=== PATIENT | male | born 2000 | race Two or more races ===

== ENCOUNTER 2021-02-04 17:35 | Emergency (ER) | payer MEDICAID, OTHER, SELFPAY ==
[~2021-02-04] VITALS: Ht 170.2 cm; Wt 67.2 kg
--- NOTE | 2021-02-04 17:49 | NUR ---
TRIAGE: PATIENT ARRIVES WITH N/V/DIARRHEA & ALL OVER ABDOMINAL PAIN 10 OF 10 THAT BEGAN TODAY 0900 WHILE AT WORK; NO TRAUMA.
[2021-02-04] MEDS ORDERED: ONDANSETRON 2MG/ML, 2ML ONE (18:12)
[2021-02-04] MEDS ORDERED: LORazepam 2 MG/ML, 1ML ONE (18:13)
[2021-02-04] MEDS ORDERED: SODIUM CHLORIDE 0.9% 1,000ML IVBOLUS ONE (18:30)
[2021-02-04] MEDS ORDERED: LORazepam 2 MG/ML, 1ML IVPush ONE (18:30)
[2021-02-04] MEDS ORDERED: PLEASE ENTER ALLERGIES MC SCH (18:30)
[2021-02-04] MEDS ORDERED: ONDANSETRON 2MG/ML, 2ML IVPush ONE (18:30)
--- NOTE | 2021-02-04 18:31 | NUR ---
PT MEDICATED PER MAR. IV STARTED. FLUIDS INFUSING
[2021-02-04 19:04] LABS: BASOPHILS % (AUTO) 0 % (0-1); EOSINOPHILS % (AUTO) 0 % (1-7); LYMPHOCYTES % (AUTO) 5 % (22-44); MEAN CORPUSCULAR HEMOGLOBIN 29.1 pg (27.5-34.5); MEAN CORPUSCULAR HGB CONC 33.5 g/dL (33.2-36.2); MEAN PLATELET VOLUME 9.6 fL (7.4-10.4); MONOCYTES % (AUTO) 4 % (2-9); NEUTROPHILS % (AUTO) 91 % (42-75); PLATELET COUNT 203 x10^3/uL (130-400); RED BLOOD COUNT 5.52 x10^6/uL (4.38-5.82)
[2021-02-04 19:12] LABS: ALANINE AMINOTRANSFERASE 35 U/L (12-78); ALBUMIN 4.5 g/dL (3.4-5.0); ANION GAP 10 mmol/L (5-15); CALCIUM 9.2 mg/dL (8.5-10.1); CHLORIDE 104 mmol/L (98-107); CREATININE 1.05 mg/dL (0.7-1.3)
[2021-02-04 19:14] LABS: ALKALINE PHOSPHATASE 97 U/L (45-117); TOTAL PROTEIN 7.9 g/dL (6.4-8.2)
[2021-02-04 19:43] LABS: MICROSCOPIC INDICATED
[2021-02-04] MEDS ORDERED: POTASSIUM CHLORIDE 20 MEQ in SODIUM CHLORIDE 0.9% 250 ML IV ONE (20:00)
[2021-02-04] MEDS ORDERED: POTASSIUM CHLORIDE 20 MEQ PACKET PO ONE (20:00)
[2021-02-04 20:16] LABS: MD SCAN
[2021-02-04] MEDS ORDERED: POTASSIUM CHLORIDE 20 MEQ PACKET ONE (20:18)
--- NOTE | 2021-02-04 20:21 | NUR ---
TASK RN: PT MEDICATED PER MAR.
--- NOTE | 2021-02-04 20:50 | NUR ---
PT GIVEN WATER AND CRACKERS
[2021-02-04] MEDS ORDERED: MAGNESIUM SULFATE/D5W 100 ML ONE (21:24)
[2021-02-04] MEDS ORDERED: MAGNESIUM SULFATE 1 GM in DEXTROSE 5% 100 ML IV ONE (21:30)
[2021-02-04] MEDS ORDERED: MAGNESIUM SULFATE 1 GM in SODIUM CHLORIDE 0.9% 50 ML IV ONE (21:30)
[2021-02-04 22:35] VITALS: BP 108/59
--- NOTE | 2021-02-04 22:38 | NUR ---
Patient/Caregiver given discharge instructions and they have confirmed that they understand the instructions. Patient ambulatory with steady gait.
== END 2021-02-04 22:40 | disposition home or self-care (01) ==
LOC: ED 21:51
DX: K29.00 Acute gastritis without bleeding (principal); R11.2 Nausea with vomiting, unspecified; E86.0 Dehydration; E87.6 Hypokalemia; E83.42 Hypomagnesemia
CPT/HCPCS: 36415; 80053; 81001; 83690; 83735; 85025; 96365; 96375; 99285; J2060; J2405; J3475; J3480; J7030; J7050